=== PATIENT | female | born 1990 | race Caucasian/White ===

== ENCOUNTER 2017-01-02 19:46 | Emergency (ER) | payer SELFPAY ==
[~2017-01-02 19:46] MED LIST: ACYC800T PO; AMOX1TAB67 PO; CIPR7.5D4 RIGHT EAR; FAMO20TA18 PO; HYDR-3498 PO; IBUP800T25 PO; NPH10OT RIGHT EAR; OMEP20CA9 PO; ONDA-43 PO; PREN1TAB49 PO; TRAM50TA2 PO; UDMYL PO
== END 2017-01-02 21:32 | disposition left against medical advice (07) ==
LOC: E/R 19:46
DX: Z53.21 Procedure and treatment not carried out due to patient leaving prior to being seen by health care provider (principal)

== ENCOUNTER 2017-12-05 03:53 | Emergency (ER) | END 2017-12-05 08:26 | disposition home or self-care (01) ==

== ENCOUNTER 2017-12-07 08:45 | Emergency (ER) | END 2017-12-07 11:20 | disposition home or self-care (01) ==

== ENCOUNTER 2017-12-07 23:34 | Emergency (ER) | END 2017-12-08 04:42 | disposition home or self-care (01) ==